=== PATIENT | male | born 1995 | race Caucasian/White ===

== ENCOUNTER 2016-08-21 16:41 | Emergency (ER) | payer BC ==
[~2016-08-21] VITALS: Ht 175.3 cm; Wt 75.0 kg
[2016-08-21 16:44] VITALS: TEMP 97.9
[2016-08-21] MEDS ORDERED: ZOFRAN8 MG PO (17:04)
[2016-08-21 18:40] LABS: ADJUSTED CALCIUM 9.2 mg/dL (8.4-10.2); ALBUMIN 4.9 gm/dL (3.5-5.0); BILIRUBIN,TOTAL 1.7 mg/dL (0.0-1.0); CALCIUM 9.9 mg/dL (8.4-10.2); CREATININE, serum 0.92 mg/dL (0.66-1.25); MAGNESIUM 1.7 mg/dL (1.6-2.3); PHOSPHOROUS 2.9 mg/dL (2.5-4.5); POTASSIUM 3.9 mmol/L (3.4-5.0); TOTAL PROTEIN 8.7 gm/dL (6.4-8.2)
[2016-08-21 18:54] VITALS: BP 132/89; PULSE 76
== END 2016-08-21 19:07 | disposition home or self-care (01) ==
LOC: COL.ER 16:41
PROVIDERS: Emergency Medicine
DX: E86.9 Volume depletion, unspecified (principal); R10.13 Epigastric pain; R11.10 Vomiting, unspecified
CPT/HCPCS: C9113; J1170; J2405; J7030